=== PATIENT | female | born 1980 | race African-American/Black ===

== ENCOUNTER 2017-01-31 07:07 | Inpatient (IN) | payer SELFPAY ==
--- NOTE | ~2017-01-31 | PA ---
Unit #: [id number] #: [id number] Patient: BING VELEZ [id number] [facility] [address] [place] [address] [id number] MR#: [id number] NAME: BING VELEZ ROOM: [facility] Age: 36 Sex: F Admission Date: 01/31/2017 : 1980 Date of Assessment: 01/31/2017 Attending Physician: Jakob Agustin M.D. Admitting Physician: Jakob Agustin M.D. PSYCHIATRIC ASSESSMENT IDENTIFYING INFORMATION The patient is a 36-year-old female admitted to the [facility] Unit with a history of heroin dependence. CHIEF COMPLAINT Coming off heroin. INFORMANT Patient, reliability is good. HISTORY OF PRESENT ILLNESS The patient is a 36-year-old female who is from [place], [place]. She is admitted after presenting to this facility complaining of heroin use dating to the age of 16. The patient reports that she is using approximately 20 dollars daily by means of intranasal insufflation. She denies abuse of other psychoactive substances. She denies prior chemical dependence or other psychiatric treatments. She is in the [place] area to participate in programming at the [facility]. She did report positive suicidal ideation at the time of admission but now denies suicidal ideation. She does, however, report some depressive symptoms. She is currently on no prescribed psychotropic or other medications and denies any prior history of treatment with psychotropic medications. She does report a history of one previous suicide attempt, but is currently denying suicidal thinking. PAST PSYCHIATRIC HISTORY As above. PAST MEDICAL HISTORY Noncontributory. MEDICATIONS None. ALLERGIES None. FAMILY HISTORY Noncontributory. SOCIAL HISTORY The patient is from [place], [place], but is reportedly involved in a treatment program in the [place] area. She reports substance use as Unit #: [id number] #: [id number] Patient: BING VELEZ noted previously and is a smoker. MENTAL STATUS EXAMINATION Examination at this time reveals the patient to be a thin female appearing her stated age. She is in significant physical distress at the time of evaluation. She is awake, alert, and oriented in all spheres. Her mood is mildly dysphoric, her affect constricted. Speech is generally well coherent. There are no gross deficits in memory or cognition noted. Intelligence is judged to be in the average range based on fund of knowledge. The patient is cooperative throughout the interview. She is currently denying suicidal or homicidal ideation of psychotic features. Judgment and insight appear to be intact. ASSETS AND LIABILITIES The patient's assets are to be assessed. Liabilities: Lack of resources. DIAGNOSTIC IMPRESSION 1. Opioid use disorder. 2. Dysthymic disorder. TREATMENT PLAN The patient remains hospitalized for safety and stabilization. At this point, she has been placed on routine detoxification protocol for opioids. Suicide precautions are in place. We will consider initiation of antidepressant medication as the patient's clinical course continues ESTIMATED LENGTH OF STAY 3 to 5 days. Dictated by... Jakob Agustin M.D. Margarita TD: 01/31/2017 15:05 JOB #: [id number] PSYCHIATRIC ASSESSMENT X Jakob Agustin MD X PSYCHIATRIC ASSESSMENT
--- NOTE | ~2017-01-31 | HP ---
Unit #: [id number] #: [id number] Patient: DONNA VELEZ [id number] [place] [address] [id number] I MR#: [id number] NAME: DONNA VELEZ ROOM: [facility] Age: 36 Sex: F Admission Date: 01/31/2017 : 1980 Attending Physician: Jakob Agustin M.D. Admitting Physician: Jakob Agustin M.D. HISTORY AND PHYSICAL HISTORY OF PRESENT ILLNESS Donna is a 36 year old admitted to [address] [place] [address] because of her drug use. She snorts heroin. PAST MEDICAL HISTORY Long history of illicit substance abuse to include heroin. PAST SURGICAL HISTORY 1. Ectopic . 2. Fractured leg with ORIF. ALLERGIES No known drug allergies. SOCIAL HISTORY Smokes 1 pack per day. Drinks alcohol rarely and admits to a history of opioid abuse. FAMILY HISTORY Medically noncontributory. REVIEW OF SYSTEMS CONSTITUTIONAL: No fever or chills. HEENT: Denies any sore throat, ear pain or runny nose. CARDIOVASCULAR: Denies chest pain, irregular heart rhythm or palpitations. CHEST: Denies shortness of breath or cough. No hemoptysis. GASTROINTESTINAL: Denies nausea, vomiting, diarrhea or chronic constipation. ENDOCRINE: Denies history of increased thirst or urination. No recent significant weight loss or gain. GENITOURINARY: Denies dysuria, frequency, or hematuria. SKIN: Denies any rashes. HEMATOLOGIC: Denies history of increased bleeding or bruising. MUSCULOSKELETAL: Denies any hot, swollen joints. No generalized muscle pain. NEUROLOGIC: Denies problems with vision or speech. No frequent, severe headaches. No numbness, tingling or weakness in any extremities. Denies loss of bladder or bowel control. CURRENT MEDICATIONS Detox protocol. PHYSICAL EXAMINATION Unit #: [id number] #: [id number] Patient: DONNA VELEZ GENERAL: Alert, thin, no apparent distress. VITAL SIGNS: Blood pressure 110/80, heart rate 70, respirations 16, temperature 98.6. WEIGHT: 130. HEIGHT: 5 feet 2 inches. SKIN: Warm and dry without rash or lesion. HEENT: Normocephalic. TMs not viewed. Oral and nasal passages clear. Conjunctivae clear. PERRLA. EOMs intact. NECK: Supple without lymphadenopathy or thyromegaly. HEART: Regular rate and rhythm without murmur. LUNGS: Clear. ABDOMEN: Soft, nontender. : Not done. EXTREMITIES: No evidence of cyanosis, clubbing or edema. Moves all without focal deficit. NEUROLOGICAL: Grossly within normal limits. Cranial Nerves: II: Visual urrutia are intact. III, IV AND : Extraocular movements are intact. Pupils are equal, round and reactive to light. V: Facial sensation is grossly normal. VII: Facial movements and expression are normal. VIII: Auditory acuity grossly intact. IX, X: Uvula is midline. Phonation is normal. XI: Patient shrugs shoulders and turns head normally. XII: Tongue protrudes in the midline. Sensory and Motor Function: Sensory and motor sensation is grossly normal. Motor: moves all extremities well. Coordination: Gait is normal. Deep Tendon Reflexes: Intact. IMPRESSION Psychiatric admission. RECOMMENDATIONS PSYCHIATRIC: Per psychiatrist. MEDICAL: See no contraindications to participate in facility's activities. MEDICAL PROGNOSIS Good. MEDICAL CONDITION Stable. Dictated by... Lakshmi Hamilton P.A.-C. for Graeme Mckoy/brenden TD: 01/31/2017 17:42 JOB #: [id number] Unit #: [id number] #: [id number] Patient: YOUNG,DONNA HISTORY AND PHYSICAL X Lakshmi Hamilton HISTORY AND PHYSICAL
--- NOTE | ~2017-01-31 | DS ---
Unit #: [id number] #: [id number] Patient: BING VELEZ [id number] [facility] [address] [place] [address] [id number] MR#: [id number] NAME: BING VELEZ ROOM: [facility] [place][Note 2] Age: 36 Sex: F Admission Date: 01/31/2017 : 1980 Discharge Date: 02/01/2017 Attending Physician: Jakob Agustin M.D. DISCHARGE SUMMARY REASON FOR ADMISSION The patient is a 36-year-old female, admitted to the [address] [place] [address] unit for opioid detox. HOSPITAL COURSE The patient was admitted to the [address] [place] [address] unit and placed on suicide precautions. Routine detoxification protocol for opioids was initiated. The patient admitted to this physician that she had feigned suicidal ideation in order to gain admission to the hospital. When seen by this physician 02/01/2017, she repeated this and was in brighter spirits. She exhibited no signs or symptoms of withdrawal and requested discharge. It was so ordered. FINAL DIAGNOSIS Opioid use disorder. DISPOSITION ON DISCHARGE The patient is discharged on no psychotropic or other medications. FOLLOWUP Followup will take place through the auspices of community mental health and chemical dependency resources. PROGNOSIS The patient's prognosis is fair. Dictated by... Jakob Agustin M.D. CB/wilder TD: 02/01/2017 21:39 JOB #: [id number] Unit #: [id number] #: [id number] Patient: BING VELEZ DISCHARGE SUMMARY X Jakob Agustin MD X DISCHARGE SUMMARY
[2017-02-01 09:34] LABS: BASOPHIL% 0.4 % (0-2.5); EOSINOPHIL# 0.1 X10e3 (0-0.7); EOSINOPHIL% 0.7 % (0.0-7.0); HEMATOCRIT 36.6 % (35.0-45.0); HEMOGLOBIN 11.9 gm/dL (12.0-16.0); LYMPHOCYTE# 1.7 X10e3 (1.0-3.5); LYMPHOCYTE% 24.1 % (17.0-45.0); MEAN CELL VOLUME 84.4 FL (83-96); MEAN CORPUSCULAR HEMOGLOBIN 27.3 PG (28-34); MEAN CORPUSCULAR HGB CONC 32.4 g/dL (30-36); MEAN PLATELET VOLUME 7.9 FL (6.5-11.5); MONOCYTE# 0.6 X10e3 (0-1.0); MONOCYTE% 8.6 % (3.0-12.0); NEUTROPHIL# 4.8 X10e3 (1.5-7.1); NEUTROPHIL% 66.2 % (40-75); PLATELET COUNT 302 X10e3 (140-420); RED BLOOD COUNT 4.34 X10e (3.90-5.30); RED CELL DISTRIBUTION WIDTH 21.9 % (11.0-15.5); WHITE BLOOD COUNT 7.2 X10e3 (4.0-10.5)
[2017-02-01 09:52] LABS: DIFF IND NO
[2017-02-01 10:32] LABS: THYROID STIMULATING HORMONE 1.68 uIU/ml (0.34-5.60)
[2017-02-01 10:39] LABS: FREE THYROXIN (T4) 0.73 ng/dL (0.58-1.64)
[2017-02-01 10:43] LABS: ALBUMIN SERUM 3.8 g/dL (3.5-5.0); ALKALINE PHOSPHATASE 41 U/L (32-92); ALT (SGPT) 15 U/L (10-40); AST (SGOT) 20 U/L (10-42); BILIRUBIN,TOTAL 0.5 mg/dL (0.2-2.0); BLOOD UREA NITROGEN 11 mg/dL (9-23); CARBON DIOXIDE 27 mmol/L (22-31); CHLORIDE 108 mmol/L (100-111); GLOM FILT RATE Estimated ABOVE60 mL/min (>60); GLUCOSE FASTING 111 mg/dL (70-110); POTASSIUM 3.8 mmol/L (3.5-5.1); SODIUM 138 mmol/L (135-145)
== END 2017-02-01 15:56 | DRG 897 ==
LOC: P2S 07:07
PROVIDERS: Specialist
PROC: HZ2ZZZZ Detoxification Services for Substance Abuse Treatment (ICD-10-PCS; principal; 2017-01-31)
DX: F11.10 Opioid abuse, uncomplicated (principal); F34.1 Dysthymic disorder; F17.210 Nicotine dependence, cigarettes, uncomplicated
CPT/HCPCS: 80053; 84439; 84443; 84703; 85025; 86592